=== PATIENT | male | born 1980 ===

== ENCOUNTER 2022-10-10 11:56 | Emergency (ER) | payer BC ==
[~2022-10-10] VITALS: Ht 167.6 cm; Wt 86.2 kg
[2022-10-10 13:33] LABS: BASOPHILS % (AUTO) 0.3 % (0.0-5.0); EOSINOPHILS % (AUTO) 0.4 % (0.0-8.0); LYMPHOCYTES % (AUTO) 17.3 % (21.0-51.0); MEAN CORPUSCULAR HEMOGLOBIN 28.8 pg (27.0-33.0); MEAN CORPUSCULAR HGB CONC 33.3 g/dL (32.0-36.0); MEAN CORPUSCULAR VOLUME 86.5 fL (79-99); MONOCYTES % (AUTO) 10.2 % (3.0-13.0); NEUTROPHILS % (AUTO) 71.5 % (40.0-77.0); PLATELET COUNT (AUTO) 304 K/uL (130-400); RED BLOOD CELL COUNT(AUTO) 5.32 MIL/uL (4.50-6.20); RED CELL DISTRIBUTION WIDTH 13.6 % (11.0-15.5); WHITE BLOOD COUNT (AUTO) 10.4 K/uL (4.8-10.8)
[2022-10-10 13:45] LABS: CREATININE 0.9 mg/dL (0.5-1.5); POTASSIUM 4.9 mmol/L (3.5-5.1)
[2022-10-10 13:48] LABS: MAGNESIUM 1.5 mg/dL (1.80-2.40); TOTAL PROTEIN, SERUM 8.4 g/dL (6.0-8.3)
[2022-10-10] MEDS ORDERED: 0.9%NACL 1000ML 1,000 ML IV ONE (14:30)
[2022-10-10] MEDS ORDERED: ONDANSETRON ODT 4MG TAB ONE (14:40)
[2022-10-10] MEDS ORDERED: ONDANSETRON ODT 4MG TAB SL ONE (15:00)
[2022-10-10] MEDS ORDERED: MAGNESIUM OXIDE 400 MG TABLET PO ONE (15:00)
[2022-10-10 15:02] VITALS: BP 125/92
== END 2022-10-10 16:15 | disposition home or self-care (01) ==
LOC: EDH 11:56
DX: A08.4 Viral intestinal infection, unspecified (principal); Z20.822 Contact with and (suspected) exposure to COVID-19; E86.0 Dehydration; E83.42 Hypomagnesemia; Z91.013 Allergy to seafood
CPT/HCPCS: 99283; 96360; 87635; 83735; 80053; 85025; 87804 ×2; 36415; C9803; J7030